=== PATIENT | female | born 1945 | race Caucasian/White ===

== ENCOUNTER 2020-02-19 07:54 | Emergency (ER) | payer OTHER ==
[~2020-02-19] VITALS: Ht 160 cm; Wt 75.8 kg
[2020-02-19] MEDS ORDERED: Flecainide Acet50 MG PO (08:12)
[2020-02-19] MEDS ORDERED: ROSU10TA PO (08:13)
[2020-02-19] MEDS ORDERED: LOSA50 PO (08:13)
[2020-02-19] MEDS ORDERED: Aspir 8181 MG PO (08:14)
[2020-02-19 09:36] LABS: BASOPHILS ABSOLUTE AUTO 0.04 K/mm3 (0.00-0.23); BASOPHILS PERCENT AUTO 1 % (0-2); EOSINOPHILS ABSOLUTE AUTO 0.03 K/mm3 (0.00-0.68); EOSINOPHILS PERCENT AUTO 1 % (0-6); Hematocrit 41.7 % (33.0-51.0); IMMATURE GRAN ABSOLUTE AUTO 0.01 K/mm3 (0.00-0.10); IMMATURE GRAN PERCENT AUTO 0 % (0-1); LYMPHOCYTES ABSOLUTE AUTO 1.12 K/mm3 (0.84-5.20); LYMPHOCYTES PERCENT AUTO 18 % (21-46); MONOCYTES ABSOLUTE AUTO 0.39 K/mm3 (0.16-1.47); MONOCYTES PERCENT AUTO 6 % (4-13); Mean Corpuscular HGB 31.6 pg (26.0-34.0); Mean Corpuscular HGB Conc 33.6 g/dL (31.5-36.5); Mean Corpuscular Volume 94 fL (80-100); Mean Platelet Volume 10.5 fL (9.1-12.4); NEUTROPHILS ABSOLUTE AUTO 4.71 K/mm3 (1.96-9.15); NEUTROPHILS PERCENT AUTO 75 % (41-73); Platelet Count 174 K/mm3 (150-400); RDW Coefficient Variation 12.6 % (11.7-14.2); RDW Standard Deviation 43.8 fL (35.1-46.3); Red Blood Cell Count 4.43 M/mm3 (3.80-5.20)
[2020-02-19 09:46] LABS: Anion Gap 6 mmol/L (6-16); Blood Urea Nitrogen 13 mg/dL (8-24); Bun/Creatinine Ratio 18.9 (12.0-20.0); CO2, Blood 25 mmol/L (21-32); Calcium, Blood 8.4 mg/dL (8.5-10.1); Chloride, Blood 109 mmol/L (98-108); Creatinine, Blood 0.69 mg/dL (0.40-1.00); Glomerular Filtration Rate >60 (60-); Glucose, Blood 103 mg/dL (70-99); Potassium, Blood 4.1 mmol/L (3.5-5.5); Sodium, Blood 140 mmol/L (136-145)
[2020-02-19 12:00] LABS: Adenovirus Not Detected (NOT DETECT); Bordetella pertussis Not Detected (NOT DETECT); Chlamydophila pneumoniae Not Detected (NOT DETECT); Coronavirus 229E Not Detected (NOT DETECT); Coronavirus HKU1 Not Detected (NOT DETECT); Coronavirus NL63 Not Detected (NOT DETECT); Coronavirus OC43 Not Detected (NOT DETECT); Human Metapneumovirus Not Detected (NOT DETECT); Human Rhinovirus/Enterovirus Detected (NOT DETECT); Influenza A/2009-H1 Not Detected (NOT DETECT); Influenza A/H1 Not Detected (NOT DETECT); Influenza A/H3 Not Detected (NOT DETECT); Influenza B Not Detected (NOT DETECT); Mycoplasma pneumoniae Not Detected (NOT DETECT); Parainfluenza Virus 1 Not Detected (NOT DETECT); Parainfluenza Virus 2 Not Detected (NOT DETECT); Parainfluenza Virus 3 Not Detected (NOT DETECT); Parainfluenza Virus 4 Not Detected (NOT DETECT); Respiratory Syncytial Virus Not Detected (NOT DETECT); SARS-Cov-2 (COVID-19), BioFire Not Detected (NOT DETECT)
== END 2020-02-19 12:50 | disposition home or self-care (01) ==
LOC: ER 07:54
PROVIDERS: Physician Assistant
DX: B34.1 Enterovirus infection, unspecified (principal); I10 Essential (primary) hypertension; I48.91 Unspecified atrial fibrillation; Z79.82 Long term (current) use of aspirin; Z79.899 Other long term (current) drug therapy; Z20.828 Contact with and (suspected) exposure to other viral communicable diseases
CPT/HCPCS: 0202U; 71045; 80048; 85025; 99284-25

== ENCOUNTER → 2022-09-14 | Outpatient (CLI) | payer MEDICARE ==
[~2022-09-14] MED LIST: Aspir 8181 MG PO; Flecainide Acet50 MG PO; LOSA50 PO; ROSU10TA PO
[2022-09-14 15:54] LABS: Albumin, Blood 3.9 g/dL (3.4-5.0); Anion Gap 9 mmol/L (6-16); Blood Urea Nitrogen 22 mg/dL (8-24); Bun/Creatinine Ratio 29.7 (12.0-20.0); CO2, Blood 27 mmol/L (21-32); Calcium, Blood 8.8 mg/dL (8.5-10.1); Chloride, Blood 106 mmol/L (98-108); Creatinine, Blood 0.74 mg/dL (0.40-1.00); Glomerular Filtration Rate 83 (60-); Glucose, Blood 99 mg/dL (70-99); Phosphorus, Blood 3.8 mg/dL (2.5-4.9); Sodium, Blood 142 mmol/L (136-145)
== END | disposition home or self-care (01) ==
LOC: LAB SHORT 15:39 → LAB 15:39
PROVIDERS: Family Medicine
DX: R06.09 Other forms of dyspnea (principal)
CPT/HCPCS: 80069

== ENCOUNTER 2023-07-20 23:29 | Observation (INO) | payer OTHER ==
[~2023-07-20] VITALS: Ht 160 cm; Wt 79.5 kg
[~2023-07-20 23:29] MED LIST changes: +ATOR80 PO; +CLOP75 PO; +HYDROCODONE-AC1 EA19 PO; +Isosorbide Mono30 MG PO; +OXYB5 PO
[2023-07-20] MEDS ORDERED: Aspirin 325 MG Tab PO ONE (23:50)
[2023-07-20] MEDS ORDERED: Ondansetron HCl 2 MG / ML 2ML Vial IV ONE (23:50)
[2023-07-20] MEDS ORDERED: Nitroglycerin 0.4 MG SUBL SL SCH (23:50)
[2023-07-20] MEDS ORDERED: LOSA50 PO (23:51)
[2023-07-20 23:52] LABS: BASOPHILS ABSOLUTE AUTO 0.05 K/mm3 (0.00-0.23); BASOPHILS PERCENT AUTO 1 % (0-2); EOSINOPHILS ABSOLUTE AUTO 0.24 K/mm3 (0.00-0.68); EOSINOPHILS PERCENT AUTO 3 % (0-6); Hematocrit 38.8 % (33.0-51.0); Hemoglobin 12.8 g/dL (11.5-16.0); IMMATURE GRAN ABSOLUTE AUTO 0.02 K/mm3 (0.00-0.10); IMMATURE GRAN PERCENT AUTO 0 % (0-1); LYMPHOCYTES ABSOLUTE AUTO 3.62 K/mm3 (0.84-5.20); LYMPHOCYTES PERCENT AUTO 49 % (21-46); MONOCYTES ABSOLUTE AUTO 0.48 K/mm3 (0.16-1.47); MONOCYTES PERCENT AUTO 6 % (4-13); Mean Corpuscular HGB 29.7 pg (26.0-34.0); Mean Corpuscular Volume 90 fL (80-100); Mean Platelet Volume 10.8 fL (9.1-12.4); NEUTROPHILS ABSOLUTE AUTO 3.06 K/mm3 (1.96-9.15); NEUTROPHILS PERCENT AUTO 41 % (41-73); Platelet Count 203 K/mm3 (150-400); RDW Coefficient Variation 13.7 % (11.7-14.2); RDW Standard Deviation 45.4 fL (35.1-46.3); Red Blood Cell Count 4.31 M/mm3 (3.80-5.20); White Blood Cell Count 7.47 K/mm3 (4.00-11.30)
[2023-07-21] VITALS (10 sets, daily range): BP systolic 109–163; BP diastolic 57–83
[2023-07-21 00:06] LABS: Albumin, Blood 3.7 g/dL (3.4-5.0); Albumin/Globulin Ratio 1.2 (0.8-1.8); Bilirubin, Total 0.3 mg/dL (0.1-1.0); Bun/Creatinine Ratio 21.6 (12.0-20.0); Calcium, Blood 8.9 mg/dL (8.5-10.1); Creatinine, Blood 1.02 mg/dL (0.40-1.00); Globulin, Blood 3.2 g/dL (2.2-4.0); Total Protein, Blood 6.9 g/dL (6.4-8.2)
[2023-07-21] MEDS ORDERED: Ondansetron HCl 2 MG / ML 2ML Vial IV PRN (01:40)
[2023-07-21] MEDS ORDERED: Acetaminophen 325 MG TABLET PO PRN (01:40)
[2023-07-21] MEDS ORDERED: Nitroglycerin 0.4 MG SUBL SL PRN (01:40)
[2023-07-21] MEDS ORDERED: Lactated Ringer's 1,000 ML IV SCH (02:00)
[2023-07-21] MEDS ORDERED: MULVITA PO (02:27)
[2023-07-21] MEDS ORDERED: VITAMIN D31000 UNI1 PO (02:27)
[2023-07-21 04:21] LABS: BASOPHILS ABSOLUTE AUTO 0.03 K/mm3 (0.00-0.23); BASOPHILS PERCENT AUTO 1 % (0-2); EOSINOPHILS ABSOLUTE AUTO 0.24 K/mm3 (0.00-0.68); EOSINOPHILS PERCENT AUTO 4 % (0-6); Hematocrit 33.2 % (33.0-51.0); Hemoglobin 11.1 g/dL (11.5-16.0); IMMATURE GRAN ABSOLUTE AUTO 0.01 K/mm3 (0.00-0.10); IMMATURE GRAN PERCENT AUTO 0 % (0-1); LYMPHOCYTES ABSOLUTE AUTO 2.86 K/mm3 (0.84-5.20); LYMPHOCYTES PERCENT AUTO 46 % (21-46); MONOCYTES ABSOLUTE AUTO 0.43 K/mm3 (0.16-1.47); MONOCYTES PERCENT AUTO 7 % (4-13); Mean Corpuscular HGB 29.8 pg (26.0-34.0); Mean Corpuscular HGB Conc 33.4 g/dL (31.5-36.5); Mean Corpuscular Volume 89 fL (80-100); Mean Platelet Volume 10.9 fL (9.1-12.4); NEUTROPHILS ABSOLUTE AUTO 2.68 K/mm3 (1.96-9.15); NEUTROPHILS PERCENT AUTO 43 % (41-73); Platelet Count 168 K/mm3 (150-400); RDW Coefficient Variation 13.9 % (11.7-14.2); RDW Standard Deviation 45.1 fL (35.1-46.3); Red Blood Cell Count 3.73 M/mm3 (3.80-5.20); White Blood Cell Count 6.25 K/mm3 (4.00-11.30)
[2023-07-21 04:38] LABS: International Normalized Ratio 1.02; Prothrombin Time Results 10.7 Sec (9.7-11.5)
--- NOTE | 2023-07-21 05:25 | NUR ---
ARRIVAL NOTE - 0230 PT INTO ROOM FROM ER, TRANSFERED STANDBY ASSIST TO BED FROM . PT DENIES CHEST PAIN/PRESSURE, SOB, JAW PAIN. VSS. A/O X4. PT INSTRUCTED TO CALL WHEN SHE GETS OUT OF BED, CALL LIGHT IN REACH.
--- NOTE | 2023-07-21 05:37 | NUR ---
SHIFT SUMMARY PT IS A/O X4, ADMITTED FOR ACUTE ONSET CHEST PAIN. TELE IN PLACE W/ NO EVENTS THIS SHIFT, VSS. PT DENIES CHEST PAIN/PRESSURE, SOB, JAW PAIN. PT INSTRUCTED TO CALL IF SHE NOTICES ONSET OF ANY OF THESE SYMPTOMS. PT CURRENTLY RESTING IN BED, CALL LIGHT IN REACH.
[2023-07-21] MEDS ORDERED: Clopidogrel Bisulfate 75 MG Tab PO SCH (09:00)
[2023-07-21] MEDS ORDERED: Enoxaparin 40 MG/0.4 ML SYR SC SCH (09:00)
[2023-07-21] MEDS ORDERED: Atorvastatin 40 MG Tab PO SCH (09:00)
[2023-07-21] MEDS ORDERED: Isosorbide Mononitrate 30 MG TABCR PO SCH (09:00)
[2023-07-21] MEDS ORDERED: Aspirin 81 MG Chew PO SCH (09:00)
[2023-07-21] MEDS ORDERED: oxyBUTYnin chloride 5 MG TAB PO SCH (09:00)
[2023-07-21 09:15] LABS: Alanine Aminotransfer (ALT/SGP 24 U/L (12-78); Albumin, Blood 2.8 g/dL (3.4-5.0); Alk Phos 59 U/L (40-126); Anion Gap 14 mmol/L (3-11); Aspartate Aminotrans (AST/SGOT 20 U/L (12-37); Bilirubin, Total 0.3 mg/dL (0.1-1.0); Blood Urea Nitrogen 20 mg/dL (8-24); CO2, Blood 25 mmol/L (21-32); Calcium, Blood 7.7 mg/dL (8.5-10.1); Chloride, Blood 109 mmol/L (98-108); Cholesterol 117 mg/dL (50-200); Creatinine, Blood 0.91 mg/dL (0.40-1.00); Globulin, Blood 2.7 g/dL (2.2-4.0); Glomerular Filtration Rate 64 (60-); Glucose, Blood 122 mg/dL (70-99); HDL Cholesterol 60 mg/dL (>39); LDL/HDL RATIO 0.8; Low Density Lipoprotein Chol 48 mg/dL (<110); Magnesium, Blood 1.6 mg/dL (1.6-2.4); Potassium, Blood 4.1 mmol/L (3.5-5.5); Sodium, Blood 144 mmol/L (136-145); Total Protein, Blood 5.5 g/dL (6.4-8.2); Triglycerides 45 mg/dL (30-160); Very Low Density Lipoprot Chol 9 mg/dL (6-32)
[2023-07-21] MEDS ORDERED: Verapamil HCL 2.5 MG/ML 2ML Injection ONE (13:02)
[2023-07-21] MEDS ORDERED: Heparin Sodium 1000 Units/ML 10ML MDV ONE (13:02)
[2023-07-21] MEDS ORDERED: NS 250 ML IV ONE (13:02)
[2023-07-21] MEDS ORDERED: NS 1,000 ML IV ONE ×2 (13:02→13:34)
--- NOTE | 2023-07-21 13:20 | NUR ---
pt left room for procedure at this time. plan is to recover in [facility] post angio. will take belongings and report to recieving rn once bed available.
[2023-07-21] MEDS ORDERED: FentaNYL Citrate 50 MCG/ML 2 ML Injection ONE (13:34)
[2023-07-21] MEDS ORDERED: Midazolam HCl 1MG / ML 2ML Vial ONE (13:34)
--- NOTE | 2023-07-21 15:03 | NUR ---
[facility] AT 1500. REPORT FROM RITA Whitaker RN. REPORT FROM FLOOR NURSE JOSE Jay WAS RECIEVED WELL. PT ARRIVED A&OX4, AND ABLE TO FOLLOW DIRECTIONS. SHE IS ON RA W/ SP02 >90% ON TELE SHE IS SR 70S-80S. SHE DENIES ANY PAIN, ANGINA, N/T, OR SOB. THE PT HAS THREE INSERTION SITE. ON THE R. AC THE PT HAS A GAUZE AND TEGADERM INTACT W/O SIGNS OF BLEEDING. ON THE LEFT WRIST DISTAL TO THE LEFT RADIAL SITE THERE IS A GAUZE INTACT W/ A TEGADERM. THE PT DOES HAVE A TRBAND INPLACE ON THE LEFT WRIST WITH 14CC'S OF AIR INSTALLED AT 1432. SITE IS W/O HEMATOMA, BLEEDING, OR TENDERNESS. THE PT DENIES ANY N/T IN DISTAL EXTREMITIY. SEQUENCE VITALS STARTED AND PTS CALL LIGHT IN REACH. SEE NOTES FOR ANY UPDATES.
--- NOTE | 2023-07-21 17:27 | NUR ---
END OF SHIFT SUMMARY THE PT REMAINS A&OX4, AND IS A SBA FOR TX D/T ANGIOSITE AND LINES. HER TR BAND ON HER LEFT WRIST HAS NOT BEEN RECOVERED YET BECAUSE IN THE DEFLATION PROCESS SHE DEVELOPED A SMALL HEMATOMA AND THE SITE BEGAN TO MILDLY BLEED. PRESSSURE WAS HELD FOR ABOUT FIVE MINUTES AND 2CC'S OF AIR WERE REINFLATED IN THE TR BAND. PER POLICY WE HAVE TO WAIT AN HOUR BEFORE DEFLATING AIR AFTER REINFLATING. VS REMAIN STABLE. BP MILDLY ELVATED. I SPOKE TO DR. MICHAEL AND HE STATED THE PT SHOULD D/C TOMORROW AND F/U OUTPT W/ [facility]. SEE NOTES FOR ANY UPDATES .
[2023-07-21] MEDS ORDERED: Labetalol HCL 5 MG/ML 4ML Injection (Single Dose) IV PRN (18:35)
[2023-07-22 00:04] VITALS: BP 114/56
[2023-07-22 04:48] VITALS: BP 147/72
--- NOTE | 2023-07-22 05:40 | NUR ---
SHIFT SUMMARY. SHIFT HAS BEEN UNREMARKABLE. PT HAS BEEN AOX4, PLEASANT, COOPERATIVE WITH CARE, CALLS APPROPRIATELY, ABLE TO MAKE NEEDS KNOWN. STEADY SBA TRANSFER TO BATHROOM. LWR TR BAND TAKEN OFF EARLY IN SHIFT, CLEANED, AND TEGADERM APPLIED. MILD OOZING BUT OTHERWISE WNL. PT HAS BEEN ABLE TO SLEEP THROUGHOUT MOST OF SHIFT. NO PAIN REPORTED. VITALS HAVE REMAINED STABLE. HAS MAINTAINED ADEQUATE SATURATION ON ROOM AIR WHILE AWAKE BUT REQUIRED 2 L O2 VIA NC WHILE SLEEPING TO MAINTAIN ADEQUATE SATURATION. CONTINUING TO MONITOR LWR SITE FOR ANY CHANGES. BED LOCKED IN LOWEST POSITION. CALL LIGHT LEFT WITHIN REACH. CONTINUING TO MONITOR.
[2023-07-22 07:45] VITALS: BP 140/71
--- NOTE | 2023-07-22 13:39 | NUR ---
PT DISCHARGED HOME. DISCUSSED DISCHARGE INSTRUCTIONS WITH PT. DISCUSSED AFTER CARE FOR RADIAL PUNCTURE SITE. PT VERBALIZED UNDERSTANDING SHE WAS ALSO SENT HOME WITH WRITTEN INSTRUCTIONS. ALERT AND ORIENTED X4, ANXIOUS AND READY TO BE DISCHARGED. PT WILL FOLLOW UP OUTPATIENT AT [facility] FOR FURTHER WORK UP AND POSSIBLE TREATMENT. INDEPENDENT, R/A NO QUESTIONS OR CONCERNS AT TIME OF DISCHARGE
== END 2023-07-22 12:54 | disposition home or self-care (01) ==
LOC: ER 23:29 → PCU 23:30 → SURS 23:30 → MEDS 23:30 → SURS 07-21 02:02 → PCU 07-21 14:14
PROVIDERS: Emergency Medicine; ADMIT Student in an Organized Health Care Education/Training Program
DX: I25.110 Atherosclerotic heart disease of native coronary artery with unstable angina pectoris (principal); I48.0 Paroxysmal atrial fibrillation; I11.9 Hypertensive heart disease without heart failure; I08.0 Rheumatic disorders of both mitral and aortic valves; Z79.82 Long term (current) use of aspirin; Z79.899 Other long term (current) drug therapy
CPT/HCPCS: 36415; 71045; 76937; 80053; 80061; 83735; 83880; 84484; 85025; 85610; 93005; 93010; 93308; 93321; 93456; 99152; 99285-25; A9270; C1769; C1894; G0378; J1644; J2250; J3010; J7030; J7050; J7120; Q9967

== ENCOUNTER 2024-07-03 17:57 | Observation (INO) | payer OTHER ==
[~2024-07-03] VITALS: Ht 160 cm; Wt 75.4 kg
[~2024-07-03 17:57] MED LIST changes: +MULVITA PO; +VITAMIN D31000 UNI1 PO
[2024-07-03 18:46] LABS: BASOPHILS ABSOLUTE AUTO 0.04 K/mm3 (0.00-0.23); BASOPHILS PERCENT AUTO 1 % (0-2); EOSINOPHILS ABSOLUTE AUTO 0.22 K/mm3 (0.00-0.68); EOSINOPHILS PERCENT AUTO 3 % (0-6); Hematocrit 38.7 % (33.0-51.0); IMMATURE GRAN ABSOLUTE AUTO 0.02 K/mm3 (0.00-0.10); IMMATURE GRAN PERCENT AUTO 0 % (0-1); LYMPHOCYTES ABSOLUTE AUTO 1.84 K/mm3 (0.84-5.20); LYMPHOCYTES PERCENT AUTO 22 % (21-46); MONOCYTES ABSOLUTE AUTO 0.48 K/mm3 (0.16-1.47); MONOCYTES PERCENT AUTO 6 % (4-13); Mean Corpuscular HGB 30.6 pg (26.0-34.0); Mean Corpuscular HGB Conc 33.6 g/dL (31.5-36.5); Mean Corpuscular Volume 91 fL (80-100); Mean Platelet Volume 10.9 fL (9.1-12.4); NEUTROPHILS ABSOLUTE AUTO 5.77 K/mm3 (1.96-9.15); NEUTROPHILS PERCENT AUTO 69 % (41-73); Platelet Count 125 K/mm3 (150-400); RDW Coefficient Variation 13.6 % (11.7-14.2); RDW Standard Deviation 45.3 fL (35.1-46.3); Red Blood Cell Count 4.25 M/mm3 (3.80-5.20); White Blood Cell Count 8.37 K/mm3 (4.00-11.30)
[2024-07-03 19:24] LABS: Albumin, Blood 3.7 g/dL (3.4-5.0); Albumin/Globulin Ratio 1.2 (0.8-1.8); Bilirubin, Total 1.2 mg/dL (0.1-1.0); Bun/Creatinine Ratio 24.7 (12.0-20.0); Calcium, Blood 9.2 mg/dL (8.5-10.1); Creatinine, Blood 0.77 mg/dL (0.40-1.00); Globulin, Blood 3.1 g/dL (2.2-4.0); Potassium, Blood 3.7 mmol/L (3.5-5.5); Total Protein, Blood 6.8 g/dL (6.4-8.2)
[2024-07-03] MEDS ORDERED: ELIQUIS5 M2 PO (23:55)
[2024-07-04 00:58] VITALS: BP 157/71
[2024-07-04] MEDS ORDERED: Dose Adjust by Pharmacy XX STA ×2 (02:17→11:32)
[2024-07-04] MEDS ORDERED: Heparin Sodium,Porcine/0.5 NS 500 ML IV SCH (02:20)
[2024-07-04 02:30] LABS: Anti-Xa UFH, PHA Monitoring 0.45 IU/mL; Prothrombin Time Results 10.7 Sec (9.7-11.5)
[2024-07-04 04:12] VITALS: BP 163/74
[2024-07-04 07:10] VITALS: BP 164/80
[2024-07-04] MEDS ORDERED: Losartan Potassium 50 MG Tab PO SCH ×2 (09:00)
[2024-07-04] MEDS ORDERED: Atorvastatin 40 MG Tab PO SCH (09:00)
[2024-07-04] MEDS ORDERED: Cholecalciferol 1000 Unit Tablet (=25MCG) PO SCH (09:00)
[2024-07-04] MEDS ORDERED: Isosorbide Mononitrate 60 MG TABCR PO SCH (09:00)
[2024-07-04] MEDS ORDERED: Multivitamins 1 Tab PO SCH (09:00)
[2024-07-04] MEDS ORDERED: HydrALAZINE HCl 20 MG / ML 1ML Vial IV PRN (09:45)
[2024-07-04 10:29] LABS: BASOPHILS ABSOLUTE AUTO 0.05 K/mm3 (0.00-0.23); BASOPHILS PERCENT AUTO 1 % (0-2); EOSINOPHILS ABSOLUTE AUTO 0.27 K/mm3 (0.00-0.68); EOSINOPHILS PERCENT AUTO 6 % (0-6); Hematocrit 37.7 % (33.0-51.0); Hemoglobin 12.6 g/dL (11.5-16.0); IMMATURE GRAN ABSOLUTE AUTO 0.01 K/mm3 (0.00-0.10); IMMATURE GRAN PERCENT AUTO 0 % (0-1); LYMPHOCYTES ABSOLUTE AUTO 1.83 K/mm3 (0.84-5.20); LYMPHOCYTES PERCENT AUTO 41 % (21-46); MONOCYTES PERCENT AUTO 7 % (4-13); Mean Corpuscular HGB 30.2 pg (26.0-34.0); Mean Corpuscular HGB Conc 33.4 g/dL (31.5-36.5); Mean Corpuscular Volume 90 fL (80-100); Mean Platelet Volume 10.8 fL (9.1-12.4); NEUTROPHILS ABSOLUTE AUTO 1.98 K/mm3 (1.96-9.15); NEUTROPHILS PERCENT AUTO 45 % (41-73); Platelet Count 118 K/mm3 (150-400); RDW Coefficient Variation 13.5 % (11.7-14.2); RDW Standard Deviation 45.1 fL (35.1-46.3); Red Blood Cell Count 4.17 M/mm3 (3.80-5.20); White Blood Cell Count 4.44 K/mm3 (4.00-11.30)
[2024-07-04 10:49] LABS: Albumin, Blood 3.2 g/dL (3.4-5.0); Albumin/Globulin Ratio 1.1 (0.8-1.8); Bilirubin, Total 0.9 mg/dL (0.1-1.0); Bun/Creatinine Ratio 23.4 (12.0-20.0); Calcium, Blood 8.3 mg/dL (8.5-10.1); Creatinine, Blood 0.64 mg/dL (0.40-1.00); Globulin, Blood 2.8 g/dL (2.2-4.0); Potassium, Blood 3.6 mmol/L (3.5-5.5)
[2024-07-04 11:32] VITALS: BP 142/92
[2024-07-04 15:17] VITALS: BP 142/70
[2024-07-04] MEDS ORDERED: METO25ER PO (16:47)
--- NOTE | 2024-07-04 17:19 | NUR ---
DISCHARGE SUMMARY PT DISCHARGED HOME @ 1730. PT REFUSED LABS AND ULTRASOUND OF ABD ONCE ELECTRONIC ENGRAVER INFORMED PT TREATMENT WOULD NEED TO TAKE PLACE AT [facility]. PT INFORMS ELECTRONIC ENGRAVER ECHO COMPLETED AT [facility] LESS THAN 2 WEEKS AGO. IV REMOVED BY CNRajinder, SITE APPEARS WNL. DISCHARGE PACKET REVIEWED WITH PT. PHARMACIST REVIEWED NEW MEDS WITH PT AND RX FAXED TO [facility]. PT WHEELED DOWN BY RN TO PRIVATE VEHICLE DRIVEN BY SON, PT ABLE TO STAND AND AMBULATE TO VEHICLE.
[2024-07-04] MEDS ORDERED: Apixaban 5 MG Tab PO SCH (21:00)
[2024-07-05] MEDS ORDERED: Metoprolol Succinate 25 MG TABCR PO SCH (09:00)
[2024-07-05] MEDS ORDERED: Aspirin 81 MG Chew PO SCH (09:00)
[2024-07-05] MEDS ORDERED: Isosorbide Mononitrate 60 MG TABCR PO SCH (09:00)
== END 2024-07-04 17:27 | disposition home or self-care (01) ==
LOC: ER 17:57 → MEDS 22:55 → ER 07-04 00:29 → MEDS 07-04 00:49
PROVIDERS: Family Medicine; Nurse Practitioner Family; Physician Assistant; ADMIT Internal Medicine
DX: R07.89 Other chest pain (principal); I25.10 Atherosclerotic heart disease of native coronary artery without angina pectoris; I25.82 Chronic total occlusion of coronary artery; I25.2 Old myocardial infarction; I48.0 Paroxysmal atrial fibrillation; I11.0 Hypertensive heart disease with heart failure; I50.30 Unspecified diastolic (congestive) heart failure; E78.5 Hyperlipidemia, unspecified; R79.89 Other specified abnormal findings of blood chemistry; D69.6 Thrombocytopenia, unspecified; R32 Unspecified urinary incontinence; Z79.82 Long term (current) use of aspirin; Z79.02 Long term (current) use of antithrombotics/antiplatelets; Z79.01 Long term (current) use of anticoagulants; Z79.899 Other long term (current) drug therapy; Z95.2 Presence of prosthetic heart valve
CPT/HCPCS: 36415; 71046; 80053; 84484; 85025; 85520; 85610; 85730; 93005; 93010; 96374; 99285-25; A9270; G0378; J1644